=== PATIENT | male | born 1955 | race Caucasian/White ===

== ENCOUNTER 2022-03-16 23:27 | Emergency (ER) | payer BC, SELFPAY ==
[2022-03-16 23:42] VITALS: BP 163/84; PULSE 101; RESP 20; TEMP 36.6; O2SAT 99; BMI 26.6
[2022-03-17] MEDS: RABIES IMMUNE GLOBULIN 150 UNIT/ML INJ 1635 UNIT INFILTRATI (00:27)
--- NOTE | 2022-03-17 00:37 | ED_ITS ---
HPI - General Adult General Chief complaint: Animal Bite Stated complaint: possible bat bite Time Seen by Provider: 03/16/22 23:35 Source: patient Mode of arrival: ambulatory Limitations: no limitations History of Present Illness HPI narrative: 66-year-old male reports that he could have possibly been bitten by a bat but he does not believe so. Reports that he was in his home when he noticed that a bat had entered. He spent about 45 minutes using a combination of badminton racquet and a broom to shoe the bat around, attempting to get it to fly outside. Ultimately, he was able to trap the animal under a large bowl, was able to slide a flat object underneath the bowl. He then took the combined apparatus to the window where he was able to toss it outside, releasing the bat. He noticed a couple of abrasions on his hand near the thenar eminence bilaterally, believes that this was most likely encounter from swatting around not the bat. He does not distinctly remember the bat coming into contact with him. However, he cannot be sure. The animal cannot be captured now to test for rabies. No prior rabies vaccinations, he is otherwise feeling well. He denies any long- term health problems. His only prescription medication is trazodone. He denies allergies. He denies any intoxications socially today. Related Data Home Medications Medication Instructions Recorded Confirmed trazodone 50 mg tablet 50 mg PO HS 03/16/22 03/16/22 Allergies Allergy/AdvReac Type Severity Reaction Status Date / Time No Known Drug Allergies Allergy Verified 03/16/22 23:45 Exam Const: Vital Signs, click to edit/add: Vital Signs - 24 hr 03/16/22 23:42 Temperature 97.9 F Pulse Rate [Right Pulse Oximeter] 101 H Respiratory Rate 20 Blood Pressure [Ri ght Upper Arm] 163/84 H Pulse Oximetry 99 Oxygen Delivery Me thod Room Air Documenting provider has reviewed patient's vital signs: yes Common normals: no apparent distress General appearance: comfortable HENMT: Common normals: normocephalic and head/scalp atraumatic Head and scalp: normocephalic and atraumatic Other: Normal visual tracking and gaze Extremity: Other: Wrist have normal range of motion, fingers move freely. No swelling noted to the hands. Tiny abrasions, 2 mm in size noted to each dorsal thenar eminence, do not appear consistent with bite rush. There is no surrounding bruising. Neuro: Speech: speech normal Motor exam: no movement abnormalities noted Psych: Common normals: mental status grossly normal, thought process normal and cooperative Thought process: normal thought process Skin: Narrative: Other than the tiny abrasions described on the dorsal thenar eminence bilater ally, no abnormalities Course Vital Signs Vital signs: Initial Vital Signs Temperature 97.9 F 03/16/22 23:42 Temperature Source Temporal Artery Scan 03/16/22 23:42 Pulse Rate 101 H 03/16/22 23:42 Respiratory Rate 20 03/16/22 23:42 Blood Pressure 163/84 H 03/16/22 23:42 Blood Pressure Mean 110 03/16/22 23:42 Blood Pressure Position Sitting 03/16/22 23:42 Pulse Oximetry 99 03/16/22 23:42 Oxygen Delivery Method 03/16/22 23:42 Vital Signs Temperature 97.9 F 03/16/22 23:42 Pulse Rate 101 H 03/16/22 23:42 Respiratory Rate 20 03/16/22 23:42 Blood Pressure 163/84 H 03/16/22 23:42 Pulse Oximetry 99 03/16/22 23:42 Oxygen Delivery Method 03/16/22 23:42 Temperature 97.9 F 03/16/22 23:42 Pulse Rate 101 H 03/16/22 23:42 Respiratory Rate 20 03/16/22 23:42 Blood Pressure 163/84 H 03/16/22 23:42 Pulse Oximetry 99 03/16/22 23:42 Oxygen Delivery Method 03/16/22 23:[address] [facility] Narrative Medical decision making narrative: Counseled patient on management. I also believe that he was not likely to have been bitten by the bat. Unfortunately the consequences if he was and contracted reviews are catastrophic. We out the risks and benefits, there is tremendous risks of the situation. I recommended rabies immunoglobulin and rabies vaccine series. He agrees to this. Course in schedule discussed. First dose is given here in the ED he will return on typical days for subsequent vaccination. Okay to use Tylenol and/or ibuprofen as needed for discomfort from vaccines. No care is needed to the tiny abrasions Discharge Plan Discharge Clinical Impression: Bite by animal Patient Disposition: Home, Self-Care Condition: Stable Instructions: Rabies Vaccine (By injection) Additional Instructions: As we discussed, I also suspect you were not bitten by the bat. This is 1 of those unusual scenarios in medicine where even though the chance of you being bitten this small, the potential ramifications of rabies exposure and subsequent rabies Disease are catastrophic. Since the condition is easy to treat and prevent with rabies injections, we recommend that you start these. Your given your immune globulin and your 1st rabies vaccine today. He will need to return about every 3 days per the schedule given to you by the nurse for your next four injections. It is common to have pain at the injection sites, muscle aches, headache and fatigue. Activity Level: No Restrictions Discharge Diet: Regular Prescriptions: No Action trazodone 50 mg tablet 50 mg PO HS Follow Up/Referrals: Silvano Klein MD [Primary Care Provider] - Stand Alone Forms: [facility] Info Instructions
[2022-03-17 01:02] VITALS: BP 163/84; PULSE 101; RESP 20; TEMP 36.6
== END 2022-03-17 00:30 | disposition home or self-care (01) ==
PROVIDERS: Emergency Provider Family Medicine; PCP Family Medicine
DX: S61.459A Open bite of unspecified hand, initial encounter (principal); Z20.3 Contact with and (suspected) exposure to rabies; W55.81XA Bitten by other mammals, initial encounter
CPT/HCPCS: 90377; 90471; 90675; 99282; 99283

== ENCOUNTER 2022-03-20 07:22 | Outpatient (RCR) | payer BC, SELFPAY ==
[2022-03-20 07:55] VITALS: BP 151/85; PULSE 80; RESP 18; TEMP 36.8; O2SAT 96
[2022-03-20 08:09] VITALS: BP 151/85; PULSE 80; RESP 18; TEMP 36.8; O2SAT 96
[2022-03-24 08:03] VITALS: BP 157/87; PULSE 72; RESP 18; TEMP 36.8; O2SAT 97
[2022-03-31 05:40] VITALS: BP 155/87; PULSE 78; RESP 18; TEMP 36.6; O2SAT 97
== END 2022-03-31 23:50 | disposition home or self-care (01) ==
LOC: EDOUT 03-24 07:04
PROVIDERS: PCP Family Medicine; Visit Provider Family Medicine
DX: T63 Toxic effect of contact with venomous animals and plants (principal)
CPT/HCPCS: 80307; 90471; 90675

== ENCOUNTER 2023-01-25 05:14 | Outpatient (CLI) | payer MEDICARE, OTHER, SELFPAY | END 2023-01-25 05:15 | disposition home or self-care (01) | LOC: AMB 01-26 11:38 | PROVIDERS: PCP Student in an Organized Health Care Education/Training Program; Visit Provider Family Medicine | DX: S09.90XA Unspecified injury of head, initial encounter (principal); W18.30XA Fall on same level, unspecified, initial encounter; Y92.009 Unspecified place in unspecified non-institutional (private) residence as the place of occurrence of the external cause | CPT/HCPCS: A0425; A0427 ==

== ENCOUNTER 2023-01-25 05:59 | Emergency (ER) | payer MEDICARE, OTHER, SELFPAY ==
[2023-01-25] VITALS (20 sets, daily range): BP systolic 107–144; BP diastolic 64–98; PULSE 59–79; RESP 18; TEMP 36.4; O2SAT 95–99
--- NOTE | 2023-01-25 06:00 | ED.NURSE ---
Patient is alert and oriented x4. Initial GCS 15. Patient able to speak in full, clear sentences, however does repeat some statements. Visualized airway is free from obstruction. Patient's breathing is even and adequate with rate of 18. Patient has no obvious injuries to chest. Patient denies SOB. No signs on increased WOB. SpO2 98% RA. Patient's skin is pink, warm, dry, and grossly intact with the exception of small lacerations to head (bleeding controlled). Distal pulses intact and easily palpable. HR 66, NSR. BP 144/98. Patient has small lacerations to posterior head - bleeding controlled. No JVD noted. Trachea midline. No focal tenderness or deformity on palpation of cervical spine. No obvious injuries to chest. Lung sounds clear in all miranda. Heart tones WNL. Abdomen soft and nontender. Pelvis stable to palpation. No abnormalities noted to extremities. CMS intact x 4. Patient c/o right buttock pain.
--- NOTE | 2023-01-25 06:18 | CRLHL7_ITS ---
For Patients: As a result of the Century Cures Act, medical imaging exams and procedure reports are released immediately into your electronic medical record. You may view this report before your referring provider. If you have questions, please contact your health care provider. INDICATION: Fall with head strike. TECHNIQUE: CT head without contrast. COMPARISON: None. FINDINGS: CSF spaces: Within normal limits for age. Brain parenchyma and extra-axial spaces: The ruby-white differentiation is normal. No sign of mass, hemorrhage, or midline shift. No extra-axial fluid collection. Skull base and calvarium: The visualized paranasal sinuses and mastoid air cells demonstrate no acute or significant findings. The visualized orbits are grossly unremarkable. No skull fractures. IMPRESSION: No acute traumatic injury is identified. Please note that all CT scans at this facility use dose modulation, iterative reconstruction, and/or weight-based dosing when appropriate to reduce radiation dose to as low as reasonably achievable. Dictated by David Rodgers MD @ 01/25/2023 7:49:23 AM (Electronically Signed)
[2023-01-25 06:33] LABS: Basophils Percent Auto 0.5 % (0.0-3.0); Eosinophils Percent Auto 2.3 % (0.0-7.0); Hematocrit 41.3 % (37.0-53.0); Hemoglobin* 13.5 gm/dL (13.5-17.5); Immature Granulocytes Pct Auto 0.2 %; Lymphocytes Percent Auto 39.8 % (20-44); Mean Corpuscular HGB Conc 33 gm/dL (32-36); Mean Corpuscular Hemoglobin 30 pg (26-34); Mean Corpuscular Volume 90 fL (80-100); Monocytes Percent Auto 6.7 % (0.0-11.0); Neutrophils Percent Auto 50.5 % (42.0-72.0); Platelet Count* 198 K/uL (140-440); RDW Coefficient of Variation % 12.4 % (11.5-15.5); Red Blood Count 4.58 m/uL (4.30-5.90); White Blood Count* 4.32 K/uL (4.50-11.00)
[2023-01-25 06:38] LABS: Chloride* 106 mmol/L (96-114); Sodium* 142 mmol/L (135-149)
[2023-01-25 06:41] LABS: Anion Gap 11 mEq/L (7-15); Blood Urea Nitrogen* 23 mg/dL (7-30); Carbon Dioxide* 25 mmol/L (20-32); Creatinine* 1.1 mg/dL (0.5-1.5); Estimated Glomerular Filt Rate 74 ml/min; Glucose* 151 mg/dL (60-115)
[2023-01-25 06:42] LABS: Calcium* 8.7 mg/dL (8.4-10.6); Slide Review Reflex No
[2023-01-25 06:54] LABS: NT Pro B Type NatriureticPept* 102 pg/mL; Troponin I* < 0.01 ng/mL (0.01-0.04)
[2023-01-25] MEDS: 0.9 % SODIUM CHLORIDE 1000 ml 1,000 ML IV (06:58)
--- NOTE | 2023-01-25 07:21 | ED.GENADULT ---
HPI - General Adult General Chief complaint: Fall/Minor Trauma Stated complaint: fall Time Seen by Provider: 01/25/23 06:18 History of Present Illness HPI narrative: Patient arrives via [facility] for [facility] called by EMS. Patient c/o fall into bathtub around 0540 today. Patient is recovering from COVID and just finished his course of Paxlovid. Patient was unable to take his trazodone while on paxlovid and took 150mg trazodone tonight for sleep. Patient states he thinks he may have been sleepwalking to the bathroom and thought he was falling into his bed, when it actually the bathtub. Patient has small lacerations to posterior head and c/o right buttock pain. Patient repeats some statements - Initial GCS 15. Patient was noted to have a HR in the 40's upon EMS arrival that increased to 60 -70's shortly after. Patient denies anticoagulant use 67-year-old man brought to the emergency department by EMS trauma team activation red. Apparently was recently diagnosed with COVID, proximally 10 days ago, and was recommended to hold some medications including his statin and trazodone. He has been having some trouble sleeping particularly with the COVID he thought and last night then took what initially sounds like triple his dose of trazodone (later clarification that this is his actual regular dosing but has been off of it for at least a week) Was up and acknowledges a rather slow urine stream -has been holding his medication to help with urination he says as well. Has been sleeping in separate rooms from his spouse. Apparently he fell and thought he was falling into his bed when actually fell into the bathtub. Spouse reports hearing commotion and then a really loud thud. EMS noted low pressures and bradycardic upon arrival. Denies particular pain though does acknowledge hitting his head. Mr. Cardoza thinks he might have been sleepwalking. Is noted to have had a laceration to his left occipital parietal scalp. Also has a sore right buttock area where he presumes he fell on it. Medications are noted. Related Data Home Medications Medication Instructions Recorded Confirmed trazodone 50 mg tablet 50 mg PO HS 03/16/22 10/06/22 cetirizine 10 mg capsule (Zyrtec) 10 mg PO QDAY PRN 10/06/22 10/06/22 fluticasone propionate 50 1 spray intranasal QDAY 10/06/22 10/06/22 mcg/actuation nasal spray,suspension (Allergy Relief (fluticasone)) rosuvastatin 10 mg tablet 10 mg PO QPM 10/06/22 10/06/22 Allergies Allergy/AdvReac Type Severity Reaction Status Date / Time Sulfa (Sulfonamide AdvReac Verified 10/06/22 09:12 Antibiotics) Review of Systems Status of ROS: Reports: 6 or more systems reviewed and unremarkable except as noted in History and below [facility] Medical History High cholesterol ?E78.00 - Pure hypercholesterolemia, unspecified (ICD-10) Retention of urine ?R33.9 - Retention of urine, unspecified (ICD-10) Encounter for screening for severe acute respiratory syndrome coronavirus 2 (SARS-CoV-2) infection ?Z11.52 - Encounter for screening for COVID-19 (ICD-10) No significant past medical history Surgical History History of left inguinal hernia repair (06/06/21) ?Z98.890 - Other specified postprocedural states (ICD-10) ?Z87.19 - Personal history of other diseases of the digestive system (ICD-10) History of tonsillectomy ?Z90.89 - Acquired absence of other organs (ICD-10) S/P ORIF (open reduction internal fixation) fracture (02/24/13) ?Z98.890 - Other specified postprocedural states (ICD-10) ?Z87.81 - Personal history of (healed) traumatic fracture (ICD-10) S/P arthroscopy of right shoulder (01/19/15) ?Z98.890 - Other specified postprocedural states (ICD-10) Social History Smoking Status: Never smoker Do you use any of these nicotine containing products: None Second hand tobacco smoke exposure: No How often do you have a drink containing alcohol: never How often do you have six or more drinks on one occasion: Never AUDIT-C Alcohol total score: 0 Non-prescribed substance use: denies use service: No Exam Narrative: Exam Narrative: Vitals noted. Are overall reassuring. Is breathing easily with open airway. There is dried blood on his left neck a little bit. Inch long intradermal laceration on the left occipital parietal scalp. They should not need suturing. Bleeding is controlled. GCS of 15 though does seem somewhat tired. Pupils are appropriately reactive though only 2 mm. They are equal. Is moving all extremities without apparent difficulty. Head as noted is with injury. No defect in calvarium is appreciated. There is no fluid in external ear canals. Neck is supple and nontender. No pain to palpation across the chest or shoulders. Well-perfused peripherally. No notable edema. No pain to palpation over the abdomen, soft. Sore to palpation in the left lower buttock. No bruising. No erythema. Back also is nontender without deformity. Fleshy nevus just right of midline in midback. Const: Vital Signs, click to edit/add: Vital Signs - 24 hr 01/25/23 06:10 01/25/23 06:34 01/25/23 06:42 Temperature 97.6 F Pulse Rate 60 66 Pulse Rate [Right Pulse Oximeter] 66 Pulse Rate [orthos tatic lying Pulse Oximeter] Pulse Rate [orthos tatic sitting Puls e Oximeter] Pulse Rate [orthos tatic standing Pul se Oximeter] Respiratory Rate 18 Blood Pressure 120/67 Blood Pressure [Le ft Upper Arm] 144/98 H Blood Pressure [or thostatic lying Ri ght Arm] Blood Pressure [or thostatic sitting Right Arm] Blood Pressure [or thostatic standing Right Arm] Pulse Oximetry 97 96 97 Oxygen Delivery Wi thod Room Air 01/25/23 06:51 01/25/23 07:00 01/25/23 07:01 Temperature Pulse Rate 67 64 60 Pulse Rate [Right Pulse Oximeter] Pulse Rate [orthos tatic lying Pulse Oximeter] Pulse Rate [orthos tatic sitting Puls e Oximeter] Pulse Rate [orthos tatic standing Pul se Oximeter] Respiratory Rate Blood Pressure 126/67 129/64 Blood Pressure [Le ft Upper Arm] Blood Pressure [or thostatic lying Ri ght Arm] Blood Pressure [or thostatic sitting Right Arm] Blood Pressure [or thostatic standing Right Arm] Pulse Oximetry 96 97 95 Oxygen Delivery Me thod 01/25/23 07:04 01/25/23 07:06 01/25/23 07:08 Temperature Pulse Rate 65 79 67 Pulse Rate [Right Pulse Oximeter] Pulse Rate [orthos tatic lying Pulse Oximeter] Pulse Rate [orthos tatic sitting Puls e Oximeter] Pulse Rate [orthos tatic standing Pul se Oximeter] Respiratory Rate Blood Pressure 130/78 127/73 107/68 Blood Pressure [Le ft Upper Arm] Blood Pressure [or thostatic lying Ri ght Arm] Blood Pressure [or thostatic sitting Right Arm] Blood Pressure [or thostatic standing Right Arm] Pulse Oximetry 98 98 97 Oxygen Delivery Me thod 01/25/23 07:11 01/25/23 07:12 Temperature Pulse Rate 72 Pulse Rate [Right Pulse Oximeter] Pulse Rate [orthos tatic lying Pulse Oximeter] 69 Pulse Rate [orthos tatic sitting Puls e Oximeter] 66 Pulse Rate [orthos tatic standing Pul se Oximeter] 74 Respiratory Rate Blood Pressure 129/69 Blood Pressure [Le ft Upper Arm] Blood Pressure [or thostatic lying Ri ght Arm] 130/78 Blood Pressure [or thostatic sitting Right Arm] 127/73 Blood Pressure [or thostatic standing Right Arm] 107/68 Pulse Oximetry 99 Oxygen Delivery Me thod Documenting provider has reviewed patient's vital signs: yes Course Vital Signs Vital signs: Initial Vital Signs Temperature 97.6 F 01/25/23 06:10 Temperature Source Temporal Artery Scan 01/25/23 06:10 Pulse Rate 66 01/25/23 06:10 Pulse Rhythm Regular 01/25/23 06:10 Respiratory Rate 18 01/25/23 06:10 Blood Pressure 144/98 H 01/25/23 06:10 Blood Pressure Mean 113 H 01/25/23 06:10 Blood Pressure Position Semi-Fowlers 01/25/23 06:10 Pulse Oximetry 97 01/25/23 06:10 Oxygen Delivery Method Room Air 01/25/23 06:10 Vital Signs Temperature 97.6 F 01/25/23 06:10 Pulse Rate 66 01/25/23 06:10 Respiratory Rate 18 01/25/23 06:10 Blood Pressure 144/98 H 01/25/23 06:10 Pulse Oximetry 97 01/25/23 06:10 Oxygen Delivery Method Room Air 01/25/23 06:10 Temperature 97.6 F 01/25/23 06:10 Pulse Rate 72 01/25/23 07:12 Respiratory Rate 18 01/25/23 06:10 Blood Pressure 129/69 01/25/23 07:12 Pulse Oximetry 99 01/25/23 07:12 Oxygen Delivery Method Room Air 01/25/23 06:10 Medical Decision Making MDM Narrative Medical decision making narrative: Will give some IV fluids. Continue to assess-monitor vitals. Orthostatics. Head CT. Check chemistries/labs. Troponin. Labs are reassuring. Glucose of [address] reviewed by me does not appear to show any acute abnormality intracranially or of the calvarium. Orthostatics did drop from 130-107 systolic. Initially reported that he was feeling fine with this but was noted to be a little wobbly on his feet. I return to talk with him already seems more lucid however is repeatedly asking same questions. Does not want more IV fluids but wants to drink water. 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 He also sounds like he was little confused and may have actually dropped himself into the tub on purpose thinking that it was is bed. I would anticipate discharge after further period of monitoring and demonstration of vital stability. Lab Data Lab results reviewed: Yes I reviewed the patient's lab results Labs: Lab Results 01/25/23 Range/Units 06:10 WBC 4.32 L (4.50-11.00) K/uL RBC 4.58 (4.30-5.90) m/uL Hgb 13.5 (13.5-17.5) gm/dL Hct 41.3 (37.0-53.0) % MCV 90 (80-100) fL MCH 30 (26-34) pg MCHC 33 (32-36) gm/dL RDW Coeff of Carlos 12.4 (11.5-15.5) % Plt Count 198 (140-440) K/uL Neut % (Auto) 50.5 (42.0-72.0) % Lymph % (Auto) 39.8 (20-44) % [place] % (Auto) 6.7 (0.0-11.0) % Eos % (Auto) 2.3 (0.0-7.0) % Baso % (Auto) 0.5 (0.0-3.0) % Neut # (Auto) 2.20 (1.7-7.0) K/uL Lymph # (Auto) 1.70 (0.90-2.90) K/uL [place] # (Auto) 0.30 (0.00-0.90) K/UL Eos # (Auto) 0.10 (0.00-0.50) K/uL Baso # (Auto) 0.00 (0.00-0.30) K/uL Abs Immat Gran (auto) 0.00 (0.00-0.30) K/uL Imm/Tot Granulo (auto) 0.2 % Sodium 142 (135-149) mmol/L Potassium 4.0 (3.6-5.1) mmol/L Chloride 106 (96-114) mmol/L Carbon Dioxide 25 (20-32) mmol/L Anion Gap 11 (7-15) mEq/L BUN 23 (7-30) mg/dL Creatinine 1.1 (0.5-1.5) mg/dL Estimated GFR 74 ml/min Glucose 151 H (60-115) mg/dL Calcium 8.7 (8.4-10.6) mg/dL Troponin I < 0.01 L (0.01-0.04) ng/mL NT-Pro-B Natriuret Pep 102 pg/mL ECG Data Attestation: I personally reviewed and interpreted this ECG as follows: (Sinus rhythm rate of 62 some baseline irritability.) Critical Care Time Critical Care Time Critical Care Time: Yes Attestation: The patient required my highest level preparedness to intervene emergently and I personally spent this critical care time directly and personally managing the patient. This critical care time included: Obtaining a history; Examining the patient; Pulse oximetry; Ordering and reviewing of studies; Arranging urgent treatment with development of a management plan; Evaluation of patients response to treatment; Frequent reassessment discussions with other providers. This critical care time was performed to assess and manage the high probability of imminent life-threatening deterioration that could result in multiorgan failure. It was exclusive of separate billable procedures and treating other patients and teaching time. Total Critical Care Time in Minutes: 25 Discharge Plan Discharge Clinical Impression: Orthostatic hypotension, Closed head injury, Fall, Laceration of scalp Additional Instructions: Stay well-hydrated. Take care with transitions. Try to get quality and regular sleep. I think it is okay to take your trazodone though maybe you want to only take 100 mg for now. Signs and symptoms of a concussion can be headache and nausea on exertion which would also be an indication to back off that level of activity and reassess in 1 week.? Other signs might be a smoldering headache or nausea for an extended period of time, mood lability, sleep disturbances, difficulty with concentration, persistent light sensitivity. If these symptoms begin and continue for a week I would be re-evaluated for further recommendations Return for severe headache, repeated vomiting, new and focal weakness, visual changes, discoordination, unusual somnolence. Prescriptions: No Action rosuvastatin 10 mg tablet 10 mg PO QPM fluticasone propionate [Allergy Relief (fluticasone)] 50 mcg/actuation spray,suspension 1 spray intranasal QDAY Rx Instructions: administer into each nostril Zyrtec 10 mg capsule 10 mg PO QDAY PRN trazodone 50 mg tablet 50 mg PO HS Follow Up/Referrals: DUSTY ANTOINE DO [Primary Care Provider] -
== END 2023-01-25 08:31 | disposition home or self-care (01) ==
LOC: ED 07:21
PROVIDERS: Emergency Provider Family Medicine; PCP Student in an Organized Health Care Education/Training Program
DX: S01.01XA Laceration without foreign body of scalp, initial encounter (principal); I95.1 Orthostatic hypotension; W18.2XXA Fall in (into) shower or empty bathtub, initial encounter
CPT/HCPCS: 36415; 70450; 80048; 80306; 83880; 84484; 85025; 93005; 99284; 99285; 99291; G0390; J7030

== ENCOUNTER 2023-06-18 16:00 | Outpatient (RCR) | payer MEDICARE, OTHER, SELFPAY | END 2023-08-13 13:23 | disposition home or self-care (01) | PROVIDERS: PCP Student in an Organized Health Care Education/Training Program; Visit Provider Student in an Organized Health Care Education/Training Program | DX: M25.562 Pain in left knee (principal); Z51.89 Encounter for other specified aftercare | CPT/HCPCS: 97110; 97161 ==